=== PATIENT | male | born 1950 | race Caucasian/White ===

== ENCOUNTER 2020-10-11 18:40 | Emergency (ER) | payer MEDICARE ==
[2020-10-11 20:05] LABS: Absolute Lymphocytes (CBC) 1.1 K/uL (0.7-4.9); Basophils % 0.6 % (0-1.3); Hematocrit 43.4 % (39.6-49.0); RBC Red Blood Cell Count 4.92 M/uL (4.33-5.43)
[2020-10-11 20:15] LABS: Protime INR 1.13
[2020-10-11 20:28] LABS: ALT/SGPT 26 U/L (12-78); AST/SGOT 14 U/L (15-37); Albumin 4.3 g/dL (3.4-5.0); Alkaline Phosphatase 69 U/L (45-117); BUN Blood Urea Nitrogen 13 mg/dL (7-18); Bicarbonate 26 mmol/L (21-32); Bilirubin Direct 0.1 mg/dL (0-0.2); Bilirubin Total 0.7 mg/dL (0.2-1.0); Glucose Level 123 mg/dL (74-106); Lipase 107 U/L (73-393); Magnesium 2.1 mg/dL (1.8-2.4); NT PRO-BNP 46 pg/mL (<125); Potassium 3.7 mmol/L (3.5-5.1); Protein, Total 8.7 g/dL (6.4-8.2); Sodium Level 127 mmol/L (136-145); Troponin (Emerg Dept Use Only) < 0.02 ng/mL (0.0-0.045)
--- NOTE | 2020-10-11 20:35 | RAD REPORT ---
EXAM DESCRIPTION: RAD - Chest Single View - 10/11/2020 8:07 pm CLINICAL HISTORY: CHEST PAIN COMPARISON: None TECHNIQUE: AP portable chest image was obtained 10/11/2020 8:07 pm . FINDINGS: Very large right-sided pneumothorax is present with complete atelectasis of the upper, mid dle and lower lobes. Infiltrate of the lung parenchyma on the right cannot be evaluated in the settin g of complete atelectasis. Trachea remains midline. No tension pneumothorax. Left lung field is clear of focal mass or consolida tion. . Heart and vasculature are normal. No measurable pleural effusion. No acute bony abnormality s een. No acute aortic findings suspected. Findings telephoned to Dr Collins 8:29 p.m.. IMPRESSION: Very large right-sided pneumothorax with complete collapse of the right middle, upper an d lower lobes. This is not a tension pneumothorax. Trachea remains in the midline. Left lung field is clear a focal consolidation or mass.
[2020-10-11 20:58] LABS: Blood Morphology Comment NOT SEEN (NOT SEEN); Platelet Estimate ADEQ
[2020-10-11] MEDS ORDERED: FAMOTIDINE 20 MG/2 ML VIAL IV ONE (22:15)
[2020-10-11] MEDS ORDERED: MORPHINE 2 MG/ML SYR ONE ×2 (22:15→22:25)
[2020-10-11] MEDS ORDERED: ONDANSETRON 4 MG/2 ML VIAL ONE (22:25)
--- NOTE | 2020-10-11 23:49 | ER ---
Nurse's Notes [facility] Name: Ravinder Mcdermott Age: 70 yrs Sex: Male : 1950 Arrival Date: 10/11/2020 Time: 18:42 Bed 4 Private MD: Diagnosis: Pneumothorax and air leak-Right lung Presentation: 10/11 18:43 Chief complaint: Patient states: SOB and cough since this afternoon, also feeling iw nauseated, high BP , having pain to epigastric area radiating to shoulders, feels like trapped gas , took 3 times his normal BP medicine. Coronavirus screen: cough unrelated to allergies, difficulty breathing. Ebola Screen: Patient negative for fever greater than or equal to 101.5 degrees Fahrenheit, and additional compatible Ebola Virus Disease symptoms Patient denies exposure to infectious person. Patient denies travel to an Ebola-affected area in the 21 days before illness onset. No symptoms or risks identified at this time. Initial Sepsis Screen: Does the patient meet any 2 criteria? No. Patient's initial sepsis screen is negative. Does the patient have a suspected source of infection? No. Patient's initial sepsis screen is negative. Risk Assessment: Do you want to hurt yourself or someone else? Patient reports no desire to harm self or others. Onset of symptoms was October 11, 2020. 18:43 Method Of Arrival: Wheelchair iw 18:43 Acuity: SCOTTIE 2 iw Historical: - Allergies: 18:45 No Known Allergies; iw - PMHx: 18:45 Hypertension; Hyperlipidemia; iw - PSHx: 18:45 None; iw - Immunization history:: Adult Immunizations Flu vaccine is up to date. - Social history:: Smoking status: Patient/guardian denies using tobacco, but has a distant history of tobacco abuse. Screenin:15 Abuse screen: Denies threats or abuse. Denies injuries from another. Nutritional rv screening: No deficits noted. Tuberculosis screening: No symptoms or risk factors identified. Fall Risk None identified. Assessment: 19:27 General: Appears in no apparent distress. Behavior is cooperative, appropriate for age. ll2 Pain: Complains of pain in chest. Neuro: Level of Consciousness is awake, alert, obeys commands, Oriented to person, place, time, situation. Cardiovascular: Patient's skin is warm and dry. Respiratory: Airway is patent Respiratory effort is even, unlabored, Respiratory pattern is regular, symmetrical. GI: Parent/caregiver reports the patient having nausea. : No signs and/or symptoms were reported regarding the genitourinary system. EENT: No signs and/or symptoms were reported regarding the EENT system. Derm: Skin is intact, is thin, Skin is dry, Skin is pink, warm \T\ dry. Musculoskeletal: Circulation, motion, and sensation intact. Range of motion: intact in all extremities. 22:15 General: Appears uncomfortable, Behavior is calm, cooperative. Pain: Complains of pain rv in chest Pain radiates to chest. Neuro: Level of Consciousness is awake, alert, obeys commands, Oriented to person, place, time, situation. Cardiovascular: Rhythm is sinus rhythm. Respiratory: Airway is patent Respiratory effort is even, unlabored, Respiratory pattern is regular, symmetrical. 10/12 02:52 Reassessment: EMS at facility for transfer, report given to EMS. Pt left ED via ea stretcher per EMS, pt tolerating well. Vital Signs: 10/11 18:43 BP 164 / 102; Pulse 76; Resp 20; Temp 97.4; Pulse Ox 95% on R/A; Weight 79.38 kg; iw Height 5 ft. 6 in. (167.64 cm); Pain 8/10; 22:16 BP 178 / 88; Pulse 71; Resp 12; Pulse Ox 98% on 4 lpm NC; rv 22:30 BP 170 / 82; Pulse 67; Resp 12; Pulse Ox 99% on 4 lpm NC; ea 23:00 BP 166 / 82; Pulse 65; Resp 17; Pulse Ox 99% on 4 lpm NC; ea 23:33 BP 169 / 78; Pulse 63; Resp 14; Pulse Ox 98% on 4 lpm NC; ea 10/12 00:00 BP 170 / 80; Pulse 61; Resp 16; Pulse Ox 99% on 4 lpm NC; ea 00:30 BP 172 / 69; Pulse 59; Resp 15; Pulse Ox 99% on 4 lpm NC; ea 01:00 BP 154 / 76; Pulse 58; Resp 12; Pulse Ox 98% on 4 lpm NC; ea 02:50 BP 140 / 76; Pulse 54; Resp 16; Pulse Ox 99% ; ea 10/11 18:43 Body Mass Index 28.25 (79.38 kg, 167.64 cm) ED Course: 0306 18:42 Patient arrived in ED. am2 18:45 Triage completed. iw 18:46 Arm band placed on. iw 19:19 Joseph Pryro MD is Attending Physician. 7 19:25 Lyndsey Zayas, RN is Primary Nurse. ll2 20:20 Lipase Sent. ll2 20:21 CBC with Diff Sent. ll2 20:26 Basic Metabolic Panel Sent. ll2 20:26 LFT's Sent. ll2 20:26 Magnesium Sent. ll2 20:26 NT PRO-BNP Sent. ll2 20:32 XRAY Chest (1 view) In Process Unspecified. EDMS 21:45 Surgical consent explained by physician, signed by patient. rv 22:05 Assist provider with chest tube insertion with in right lateral chest wall. Tray was rv set up. Attached to pleur-e-vac. Chest tube inserted by Varghese Mario MD Placement verified by CXR, fluctuation of fluid, return of air, Dressed with foam tape, silk tape, 4X4s, Patient tolerated well. Oxygen administration via nasal cannula \T\ 4L/min Response to oxygen therapy: symptoms improved. 22:18 Patient has correct armband on for positive identification. conveyor monitor on. Pulse rv ox on. NIBP on. 23:[address] [facility] with Ashley Arias. The call was connected to Dr. manny Pryor for further information. 23:27 Chest Single View XRAY In Process Unspecified. EDMS 23:41 Ashley Arias called back with Dr. Nichols to speak with Dr. Pryor for consultation tt3 regarding the transfer request. 0307 00:00 Ashley Arias called back with admin approval. Admin approval was given to Qamar Starr RN, Charge Nurse. The accepting physician is Dr. Nichols. The pt is going to [facility], Room 735. Nurse to call report to . Face sheet and covid result to be faxed to per Ashley's request. 02:51 Patient transferred, IV remains in place. ea 03:13 Primary Nurse role handed off by Lyndsey Zayas, RN rv 03:13 Bruno Sheth, RN is Primary Nurse. rv Administered Medications: 10/11 22:02 Drug: morphine 2 mg {Note: RASS 0.} Route: IVP; Site: right antecubital; rv 22:02 Drug: Pepcid 20 mg Route: IVP; Site: right antecubital; rv 10/12 00:00 Follow up: Response: No adverse reaction ea 10/11 22:36 Drug: morphine 2 mg {Note: RASS 0.} Route: IVP; Site: right antecubital; rv 10/12 00:00 Follow up: Response: No adverse reaction ea 10/11 22:37 Drug: Zofran (Ondansetron) 4 mg Route: IVP; Site: right antecubital; rv 10/12 00:00 Follow up: Response: No adverse reaction ea 00:15 Drug: morphine 2 mg {Note: rass 0.} Route: IVP; Site: right antecubital; rv 02:54 Follow up: Response: No adverse reaction ea 03:14 Drug: morphine 2 mg {Note: RASS 0.} Route: IVP; Site: right antecubital; rv 03:14 Follow up: Response: Medication administered at discharge. rv 03:14 Drug: Zofran (Ondansetron) 4 mg Route: IVP; Site: right antecubital; rv 03:15 Follow up: Response: Medication administered at discharge. rv Outcome: 10/11 23:48 ER care complete, transfer ordered by . Shane 10/12 01:00 Instructed on the need for transfer, Demonstrated understanding of instructions. ea 02:51 Condition: stable ea 02:51 Transferred by ground EMS to [facility], Transfer form completed. ea 02:53 Patient left the ED. ea 03:17 Patient left the ED. rv Signatures: Dispatcher [employer] EDMS Lala Bill RN RN Karly Barraza am2 Nadia Fox RN RN ea Vicente, Ronaldo, Lyndsey Chaudhari RN, RN RN 2 Joseph Pryor MD MD [facility] Sebastián Sebastian tt3 Corrections: (The following items were deleted from the chart) 10/11 20:38 18:30 Arm band placed on iw iw 10/12 01:43 00:00 Ashley Arias called back with admin approval. Admin approval was given to tt3 Qamar Starr, RN, Charge Nurse. The accepting physician is Dr. Nichols. The pt is going to [facility], Room 1026. Nurse to call report to . Face sheet and covid result to be faxed to per Ashley's request. tt3
--- NOTE | 2020-10-11 23:49 | EDPHYS ---
Physician Documentation [facility] Name: Ravinder Mcdermott Age: 70 yrs Sex: Male : 1950 Arrival Date: 10/11/2020 Time: 18:42 Bed 4 Private MD: ED Physician Joseph Pryor HPI: 10/11 20:40 This 70 yrs old Male presents to ER via Wheelchair with complaints of Chest mh7 Pain > 30 y/o, Breathing Difficulty. 20:40 The patient has shortness of breath at rest. mh7 20:41 Onset: The symptoms/episode began/occurred today. Duration: The symptoms are mh7 continuous, and are unchanged since they started. The patient's shortness of breath is aggravated by coughing, light activity, is alleviated by nothing. Associated signs and symptoms: Pertinent positives: chest pain, non-productive cough, Pertinent negatives: productive cough, diaphoresis, dizziness, fever, hemoptysis, loss of consciousness, nausea, numbness in extremities, visual changes, vomiting. Severity of symptoms: At their worst the symptoms were moderate today, in the emergency department the symptoms are unchanged. Historical: - Allergies: 18:45 No Known Allergies; iw - PMHx: 18:45 Hypertension; Hyperlipidemia; iw - PSHx: 18:45 None; iw - Immunization history:: Adult Immunizations Flu vaccine is up to date. - Social history:: Smoking status: Patient/guardian denies using tobacco, but has a distant history of tobacco abuse. ROS: 21:37 Constitutional: Negative for fever, chills, and weight loss, Eyes: Negative for injury, mh7 pain, redness, and discharge, ENT: Negative for injury, pain, and discharge, Neck: Negative for injury, pain, and swelling, Back: Negative for injury and pain, : Negative for injury, bleeding, discharge, and swelling, MS/Extremity: Negative for injury and deformity, Skin: Negative for injury, rash, and discoloration, Neuro: Negative for headache, weakness, numbness, tingling, and seizure, Psych: Negative for depression, anxiety, suicide ideation, homicidal ideation, and hallucinations, Allergy/Immunology: Negative for hives, rash, and allergies, Endocrine: Negative for neck swelling, polydipsia, polyuria, polyphagia, and marked weight changes, Hematologic/Lymphatic: Negative for swollen nodes, abnormal bleeding, and unusual bruising. Exam: 21:37 Constitutional: This is a well developed, well nourished patient who is awake, alert, mh7 and in no acute distress. Head/Face: Normocephalic, atraumatic. Eyes: Pupils equal round and reactive to light, extra-ocular motions intact. Lids and lashes normal. Conjunctiva and sclera are non-icteric and not injected. Cornea within normal limits. Periorbital areas with no swelling, redness, or edema. Neck: Trachea midline, no thyromegaly or masses palpated, and no cervical lymphadenopathy. Supple, full range of motion without nuchal rigidity, or vertebral point tenderness. No Meningismus. Chest/axilla: Normal chest wall appearance and motion. Nontender with no deformity. No lesions are appreciated. Cardiovascular: Regular rate and rhythm with a normal S1 and S2. No gallops, murmurs, or rubs. Normal PMI, no JVD. No pulse deficits. 21:37 Back: No spinal tenderness. No costovertebral tenderness. Full range of motion. Skin: Warm, dry with normal turgor. Normal color with no rashes, no lesions, and no evidence of cellulitis. MS/ Extremity: Pulses equal, no cyanosis. Neurovascular intact. Full, normal range of motion. Neuro: Awake and alert, GCS 15, oriented to person, place, time, and situation. Cranial nerves II-XII grossly intact. Motor strength 5/5 in all extremities. Sensory grossly intact. Cerebellar exam normal. Normal gait. Psych: Awake, alert, with orientation to person, place and time. Behavior, mood, and affect are within normal limits. 21:37 Respiratory: the patient does not display signs of respiratory distress, Respirations: normal, Breath sounds: decreased breath sounds, that are moderate, are heard in the right chest, Respiratory rate: 20 21:37 Abdomen/GI: Inspection: obese Bowel sounds: normal, in all quadrants, Palpation: abdomen is soft and non-tender, in all quadrants, Rectal exam: the exam is deferred, because of patient request, Indicators: McBurney's point is not tender, Adams's sign is negative, Rovsing's sign is negative, Obturator sign is negative, Psoas sign is negative, Liver: no appreciated palpable abnormalities, Hernia: noted in the paraumbilical area, incarceration, is not appreciated, tenderness, is not appreciated. Vital Signs: 18:43 BP 164 / 102; Pulse 76; Resp 20; Temp 97.4; Pulse Ox 95% on R/A; Weight 79.38 kg; iw Height 5 ft. 6 in. (167.64 cm); Pain 8/10; 22:16 BP 178 / 88; Pulse 71; Resp 12; Pulse Ox 98% on 4 lpm NC; rv 22:30 BP 170 / 82; Pulse 67; Resp 12; Pulse Ox 99% on 4 lpm NC; ea 23:00 BP 166 / 82; Pulse 65; Resp 17; Pulse Ox 99% on 4 lpm NC; ea 23:33 BP 169 / 78; Pulse 63; Resp 14; Pulse Ox 98% on 4 lpm NC; ea 10/12 00:00 BP 170 / 80; Pulse 61; Resp 16; Pulse Ox 99% on 4 lpm NC; ea 00:30 BP 172 / 69; Pulse 59; Resp 15; Pulse Ox 99% on 4 lpm NC; ea 01:00 BP 154 / 76; Pulse 58; Resp 12; Pulse Ox 98% on 4 lpm NC; ea 02:50 BP 140 / 76; Pulse 54; Resp 16; Pulse Ox 99% ; ea 10/11 18:43 Body Mass Index 28.25 (79.38 kg, 167.64 cm) iw MDM: 10/11 23:44 Differential diagnosis: Anemia Anxiety Reaction asthma, Bronchitis CHF exacerbation, mh7 Chronic Obstructive Pulmonary Disease Myocardial Infarction pneumonia, Pneumothorax Psychogenic pulmonary edema. Data reviewed: vital signs, nurses notes, lab test result(s), cardiac enzymes, CBC, electrolytes, EKG, radiologic studies, plain films. Data interpreted: Pulse oximetry: on 2L(s) per nasal canula, is 99 %. Interpretation: acceptable. Counseling: I had a detailed discussion with the patient and/or guardian regarding: the historical points, exam findings, and any diagnostic results supporting the discharge/admit diagnosis, the presence of at least one elevated blood pressure reading (>120/80) during this emergency department visit, lab results, radiology results, the need to transfer to another facility, for higher level of care, [facility] does not immediately have the required specialist. Response to treatment: the patient's symptoms have markedly improved after treatment. Physician consultation: Varghese Mario MD regarding patient's condition, and will see patient in ED. ED course: Dr. Mario came to ED and placed thoracostomy tube to right chest. patient with a persistent high volume air leak and will need to be transferred to be evaluated by a thoracic surgeon per Dr. Mario.. 23:48 Patient medically screened. [facility] 10/11 19:37 Order name: Basic Metabolic Panel [facility] 10/11 19:37 Order name: CBC with Diff [facility] 10/11 19:37 Order name: LFT's [facility] 10/11 19:37 Order name: Magnesium [facility] 10/11 19:37 Order name: NT PRO-BNP [facility] 10/11 19:37 Order name: PT-INR; Complete Time: 21:04 [facility] 10/11 19:37 Order name: Troponin (emerg Dept Use Only); Complete Time: 20:39 [facility] 10/11 19:37 Order name: Basic Metabolic Panel; Complete Time: 20:39 [facility] 10/11 19:38 Order name: CBC with Automated Diff; Complete Time: 21:04 [facility] 10/11 19:38 Order name: Liver (Hepatic) Function; Complete Time: 20:39 [facility] 10/11 19:38 Order name: Magnesium; Complete Time: 20:39 [facility] 10/11 19:38 Order name: NT PRO-BNP; Complete Time: 20:39 [facility] 10/11 20:02 Order name: Lipase; Complete Time: 20:39 [facility] 10/11 19:37 Order name: XRAY Chest (1 view); Complete Time: 20:39 [facility] 10/11 19:37 Order name: EKG; Complete Time: 19:38 [facility] 10/11 19:37 Order name: Cardiac monitoring; Complete Time: 19:54 [facility] 10/11 19:37 Order name: EKG - Nurse/Tech; Complete Time: 19:55 [facility] 10/11 20:58 Order name: Manual Differential; Complete Time: 21:04 [facility] 10/11 21:57 Order name: Chest Single View XRAY la1 10/11 23:28 Order name: CORONAVIRUS [facility] 10/12 00:59 Order name: SARS-COV-2 RT PCR [facility] 10/11 19:37 Order name: IV Saline Lock; Complete Time: 19:55 [facility] 10/11 19:37 Order name: Labs collected and sent; Complete Time: 19:54 7 10/11 19:37 Order name: O2 Per Protocol; Complete Time: 19:54 7 10/11 19:37 Order name: O2 Sat Monitoring; Complete Time: 20:26 7 10/11 20:39 Order name: Oxygen; Complete Time: 21:16 mh7 Administered Medications: 22:02 Drug: morphine 2 mg {Note: RASS 0.} Route: IVP; Site: right antecubital; rv 22:02 Drug: Pepcid 20 mg Route: IVP; Site: right antecubital; rv 10/12 00:00 Follow up: Response: No adverse reaction ea 10/11 22:36 Drug: morphine 2 mg {Note: RASS 0.} Route: IVP; Site: right antecubital; rv 10/12 00:00 Follow up: Response: No adverse reaction ea 10/11 22:37 Drug: Zofran (Ondansetron) 4 mg Route: IVP; Site: right antecubital; rv 10/12 00:00 Follow up: Response: No adverse reaction ea 00:15 Drug: morphine 2 mg {Note: rass 0.} Route: IVP; Site: right antecubital; rv 02:54 Follow up: Response: No adverse reaction ea 03:14 Drug: morphine 2 mg {Note: RASS 0.} Route: IVP; Site: right antecubital; rv 03:14 Follow up: Response: Medication administered at discharge. rv 03:14 Drug: Zofran (Ondansetron) 4 mg Route: IVP; Site: right antecubital; rv 03:15 Follow up: Response: Medication administered at discharge. rv Disposition: 10/11/20 23:48 Transfer ordered to [facility]. Diagnosis is Pneumothorax and air leak - Right lung. - Reason for transfer: Higher level of care. - Accepting physician is Dr. Israel. - Condition is Stable. - Problem is new. - Symptoms have improved. Signatures: Dispatcher [employer] EDMS Lala Bill RN RN iw Attema, Lee, OTR OWNER OPERATOR-C OTR OWNER OPERATOR-Cla1 Nadia Fox RN RN ea Vicente, Ronaldo, RN RN rv Holmes, Maurice, MD MD 7 Corrections: (The following items were deleted from the chart) 10/11 20:02 19:54 LIPASE+C.LAB.BRZ ordered. EDMS EDMS 10/12 02:53 10/11 23:48 10/11/2020 23:48 Transfer ordered to [facility]. ea Diagnosis is Pneumothorax and air leak - Right lung. Reason for transfer: Higher level of care. Accepting physician is Dr. Israel. Condition is Stable. Problem is new. Symptoms have improved. mh7 10/12 03:17 02:53 10/11/2020 23:48 Transfer ordered to [facility]. rv Diagnosis is Pneumothorax and air leak - Right lung. Reason for transfer: Higher level of care. Accepting physician is Dr. Israel. Condition is Stable. Problem is new. Symptoms have improved. ea
[2020-10-12] MEDS ORDERED: MORPHINE 2 MG/ML SYR ONE ×2 (00:18→03:27)
[2020-10-12 02:59] VITALS: TEMP 97.4
[2020-10-12 03:09] VITALS: BP 140/76; O2SAT 99
[2020-10-12] MEDS ORDERED: ONDANSETRON 4 MG/2 ML VIAL ONE (03:27)
--- NOTE | 2020-10-12 05:13 | OP ---
Date of Procedure: 10/11/2020 Surgeon: Varghese Mario MD Preoperative Diagnosis: 100% right chest pneumothorax. Postoperative Diagnosis: 100% right chest pneumothorax. Procedure Perfomed: Placement of chest tube on the right side. Anesthesia: Local. Complications: None. Indications: This is the case of a 70-year-old patient seen with 100% pneumothorax in the right side . Emergent chest tube placement was requested. The benefits, alternatives, and risks fully explaine d to the patient which include, but not limited to infection, bleeding, damage to adjacent structures , anesthesia complication, empyema, hemothorax recurrence, [place] and even . He also understands th is may not relieve symptoms. He might need more than one surgical intervention. He understood, sign ed a consent. A time-out was called. Description Of Proecdure: The right chest was prepped and draped in a sterile fashion. Local anesth esia was applied. After that, we did make an incision in the right area in the anterior axillary eveline e in areas between the 4th and 5th intercostal space. We proceeded to enter the chest just above the rib. Lawson of air was obtained. We placed the chest tube up to the apex and then connected it to Pl eur-evac. The area was secured in place with a 2-0 nylon and then covered with Vaseline gauze and st erile gauze. Connected to Pleur-evac. We noticed that the patient still has an air leak. We checke d all connections which looked intact. The air leak is because of still leaking lungs I believe and I discussed the case with the doctors in the ER that I believe, although we put a chest tube this pat ient should be seen by Thoracic Surgery. There is a high chance he might need intervention to stop t hat leakage from the lung. All this may explain 100% pneumothorax. The patient right now is hemodyn amically stable. He is talking to me, in no distress. Blood pressure is in the 180s to 190. It has been like that for some time. He is relaxed with no shortness of breath and he is breathing better. The patient tolerated the procedure well. HM/MODL Voice ID: [id number] Report ID: [id number]
--- NOTE | 2020-10-12 10:49 | CON ---
Date of Consultation: 10/11/2020 Reason For Service: consult for 100% pneumothorax on the right side and placement of a ch est tube. History Of Present Illness: This is the case of a 70-year-old patient this morning, since then developed back pain and did not feel comfortable, so he decided to come to the ER where he was x-ray'd and found to have 100% pneumothorax on the right side and a surgical consult was obtained for chest tube placement. He does not remember anything like this before. He does not remember any adwoa st pain, any dysuria, hematuria, hematochezia, or melena. No recent traveling out of the country. N o family member sick at home. No trauma. No hematochezia. No hematemesis. No trauma. Review of Systems: Ten points otherwise unremarkable. Allergies: NONE. Medical Problems: Hypertension. He does not smoke. He does not drink alcohol. Family History: Noncontributory. Physical Examination: General: The patient is awake, alert. HEENT: Pupils are equal and reactive, anicteric. Neck: Supple. Chest: Absent sounds on the right side. Abdomen: Soft and depressible. Extremities: Good capillary refill. Laboratory Data: Blood work shows WBC count of 10.9 with hemoglobin of 15.2, platelets of 323. INR is 1.13. Potassium 3.7, creatinine is 0.72. Assessment And Plan: A 70-year-old patient with 100% pneumothorax on the right side. The patient wa s fully explained the benefits, alternatives, and risks of chest tube placement which include, but no t limited to infection, bleeding, damage to adjacent structures, anesthesia complication, recurrence of the pneumothorax, hemothorax, empyema, myocardial infarction, even . He also understands thi s may not relieve symptoms. He might need more than one surgical intervention. He understood and si gned a consent. Currently, the patient has a blood pressure of 190 systolic. Respirations of 20. HM/MODL Voice ID: [id number] Report ID: [id number]
--- NOTE | 2020-10-13 17:48 | RAD REPORT ---
EXAM DESCRIPTION: Chest Single View CLINICAL HISTORY: POST CHEST TUBE COMPARISON: 10/11/2020 FINDINGS: Single frontal view of the chest. Tubes and lines: Placement of right sided chest tube with tip projecting over the posterior right thi rd rib laterally. Leads overlie the chest. Cardiomediastinal silhouette: Stable Lungs: Perihilar and right basilar opacity. Low lung volumes. No definite residual pneumothorax. Bones: Stable. Upper abdomen: Stable. IMPRESSION: 1. Right chest tube in place. No definite residual pneumothorax. 2. Mild bilateral perihilar and right basilar opacities. Electronically signed by: Matthew Kennedy 10/11/2020 10:28 PM [employer] SAL[employer] Due to temporary technical issues with the PACS/Fluency reporting system, reports are being signed by the in house radiologists without review as a courtesy to insure prompt reporting. The interpreting radiologist is fully responsible for the content of the report.
== END 2020-10-12 03:17 | disposition short-term general hospital (02) ==
LOC: ER 18:40
PROC: 0W9830Z Drainage of Chest Wall with Drainage Device, Percutaneous Approach (ICD-10-PCS; principal; 2020-10-12)
DX: U07.1 COVID-19 (principal); J93.83 Other pneumothorax; J93.82 Other air leak; I10 Essential (primary) hypertension
CPT/HCPCS: 93005; 85025; 80048; 36415; 83735; 85610; 80076; 84484; 83690; 83880; 71045 ×2; 96375; 96374; 99291; 99292; 32551; U0003; J2270 ×4; J2405 ×2